=== PATIENT | male | born 1980 | race Caucasian/White ===

== ENCOUNTER 2019-04-25 23:31 | Emergency (ER) | payer OTHER ==
[~2019-04-25] VITALS: Ht 177.8 cm; Wt 72.6 kg
[2019-04-25] MEDS ORDERED: PAIN RELIEF325 MG PO (23:42)
[2019-04-26 00:04] LABS: ABSOLUTE NEUTROPHILS 4.6 thou/uL (1.4-8.2); BASOPHILS 0.9 % (0.0-2.0); EOSINOPHILS 2.7 % (0.0-3.0); HEMOGLOBIN 15.5 gm/dL (14.0-18.0); LYMPHOCYTES 38.2 % (24.0-44.0); MCH 28.6 pg (26.0-34.0); MCHC 33.7 g/dL (28.0-37.0); MCV 84.9 fL (80.0-100.0); MONOCYTES 6.7 % (1.0-8.0); PLATELET COUNT 147 thou/uL (150-400); POLYS 51.5 % (36.0-66.0); RBC 5.42 mil/uL (4.50-6.00); RDW 13.4 % (10.5-14.5)
[2019-04-26 00:12] LABS: ANION GAP 8 mmol/L (7-16); BUN 16 mg/dL (7-18); CALCIUM 8.8 mg/dL (8.5-10.1); CHLORIDE 102 mmol/L (98-107); CO2 29 mmol/L (21-32); CREATININE 1.1 mg/dL (0.7-1.3); GLUCOSE 117 mg/dL (74-106); POTASSIUM 3.8 mmol/L (3.5-5.1); SODIUM 139 mmol/L (136-145)
[2019-04-26 00:20] LABS: TROPONIN-I <0.06 ng/mL (<0.06)
[2019-04-26 00:50] VITALS: BP 122/74
--- NOTE | 2019-04-27 13:12 | EKG ---
[place] [address] [facility] [place] [place] [address] ELECTROCARDIOGRAM REPORT Name: LESTER CARVAJAL Reymundo Room #: DEP [facility]#: [id number] Admission: 04/25/19 Attend Phys: Discharge: 04/26/19 Date of : 82 Report #: [id number] THIS REPORT FOR: //name// [facility] ED Test Date: 2019-04-25 Test Time: 23:45:22 Pat Name: LESTER CARVAJAL Department: Room: Gender: Fiber Optics Technician: : 1980 Requested By: Mitchel Hoang Order Number: [id number] MD: Benjamin Farley Measurements Intervals [place] Rate: 76 P: 34 LA: 178 QRS: -3 QRSD: 87 T: 45 QT: 370 QTc: 417 Interpretive Statements Sinus rhythm Normal tracing No previous ECG available for comparison Electronically Signed On 04-27-2019 13:11:49 [employer]EL [employer]PER[employer] by Benjamin Farley [email or web address] <ELECTRONICALLY SIGNED> By: Benjamin Farely MD, [facility] 04/27/19 1311 [id number] Benjamin Farley MD, FACC /EPI
== END 2019-04-26 00:50 | disposition home or self-care (01) ==
LOC: ER 23:31
PROVIDERS: Emergency Medicine
DX: R07.89 Other chest pain (principal)